=== PATIENT | female | born 1945 | race Caucasian/White ===

== ENCOUNTER 2024-01-19 17:40 | Inpatient (IN) | payer OTHER ==
[2024-01-19] MEDS ORDERED: HALOPERIDOL LACTATE 5 MG/ML ONE (20:55)
[2024-01-19] MEDS: HALOPERIDOL LACTATE 5 MG/ML IM ONE (20:58)
[2024-01-19 21:43] LABS: BASO % 0.5 % (0-2.0); EOS % 0.7 % (0-4.5); HEMATOCRIT 32.5 % (32.4-45.2); HEMOGLOBIN 10.8 GM/dL (10.7-15.3); LYMPH % 13.1 % (8-40); MCH 27.9 pg (25.7-33.7); MCHC 33.2 g/dl (32.0-36.0); MEAN PLT VOLUME 8.4 fl (7.5-11.1); MONO % 5.9 % (3.8-10.2); NEUT % 79.8 % (42.8-82.8); PLATELET COUNT 250 10^3/uL (134-434); RBC 3.87 M/mm3 (3.60-5.2); RDW 14.2 % (11.6-15.6); WHITE BLOOD COUNT 8.9 K/mm3 (4.0-10.0)
[2024-01-19 21:54] LABS: INR 1.03 (0.83-1.09); PROTHROMBIN TIME (PATIENT) 11.8 SEC (9.7-13.0)
[2024-01-19 21:57] LABS: ACTIVATED PTT 27.1 SECONDS (25.2-36.5)
[2024-01-19 22:02] LABS: POTASSIUM 4.9 mmol/L (3.5-5.1)
[2024-01-19 22:03] LABS: CALCIUM 8.6 mg/dL (8.5-10.1)
[2024-01-19 22:04] LABS: BLOOD UREA NITROGEN 31.4 mg/dL (7-18)
[2024-01-19 22:07] LABS: CREATININE 1.3 mg/dL (0.55-1.3)
[2024-01-20] MEDS ORDERED: MELATONIN 5 MG TABLETS PO PRN (05:14)
[2024-01-20] MEDS: LEVOTHYROXINE NA 100 MCG TABLET (FP) PO SCH (06:23)
[2024-01-20 09:23] LABS: BASO % 0.5 % (0-2.0); EOS % 1.4 % (0-4.5); HEMATOCRIT 31.6 % (32.4-45.2); HEMOGLOBIN 10.5 GM/dL (10.7-15.3); LYMPH % 13.3 % (8-40); MCH 27.9 pg (25.7-33.7); MCHC 33.2 g/dl (32.0-36.0); MEAN PLT VOLUME 8.8 fl (7.5-11.1); MONO % 7.4 % (3.8-10.2); NEUT % 77.4 % (42.8-82.8); PLATELET COUNT 228 10^3/uL (134-434); RBC 3.76 M/mm3 (3.60-5.2); RDW 13.6 % (11.6-15.6); WHITE BLOOD COUNT 6.5 K/mm3 (4.0-10.0)
[2024-01-20 09:47] LABS: POTASSIUM 4.5 mmol/L (3.5-5.1)
[2024-01-20 09:51] LABS: CALCIUM 8.7 mg/dL (8.5-10.1)
[2024-01-20 09:55] LABS: CREATININE 0.9 mg/dL (0.55-1.3)
[2024-01-20] MEDS: FERROUS SO4 325 MG TABLET (FP) PO SCH (11:57)
[2024-01-20] MEDS: MULTIVITAMINS (DAILY MVI) TABLET (FP) PO SCH (11:57)
[2024-01-20] MEDS: ASCORBIC ACID 500 MG TABLET (FP) PO SCH (11:58)
[2024-01-20] MEDS: ACETAMINOPHEN 325 MG TABLET (FP) PO PRN (11:58)
[2024-01-20] MEDS: QUEtiapine FUMARATE 25 MG TABLET PO PRN (12:25)
[2024-01-20] MEDS: SENNOSIDES 8.6MG TABLET (FP) PO SCH (21:04)
[2024-01-20] MEDS: DONEPEZIL HCL 5 MG TABLET (FP) PO SCH (21:04)
[2024-01-20] MEDS: MONTELUKAST NA 10 MG TABLET PO SCH (21:04)
[2024-01-20 21:34] LABS: EPI CELLS 16 /uL (0-25.1); HYALINE CASTS 0 /uL (0-3.1); PH,URINE 5.5 (5.0-8.0); URINE APPEARANCE CLEAR; URINE BACTERIA 4860 /uL (0-1359); URINE BILIRUBIN NEGATIVE (NEGATIVE); URINE COLOR YELLOW; URINE GLUCOSE (UA) NEGATIVE (NEGATIVE); URINE KETONE NEGATIVE (NEGATIVE); URINE LEUK ESTERASE TRACE (NEGATIVE); URINE NITRITE POSITIVE (NEGATIVE); URINE PROTEIN NEGATIVE (NEGATIVE); URINE RBC 20 /uL (0-23.9); URINE UROBILINOGEN 0.2 mg/dL (0.2-1.0); URINE WBC 27 /uL (0-25.8)
[2024-01-22] MEDS: QUEtiapine FUMARATE 25 MG TABLET PO SCH (13:04)
[2024-01-23 15:02] VITALS: BMI 20.2
[2024-01-24 02:20] VITALS: RESP 16
[2024-01-24 06:57] VITALS: PULSE 56
[2024-01-24 12:02] VITALS: BP 143/61; TEMP 97.5
== END 2024-01-24 13:06 | DRG 312 ==
LOC: JER 17:40 → JERBED 01-20 01:50 → J4S 01-20 03:32 → OBSVTOIN 01-21 15:41
PROVIDERS: ADMIT Internal Medicine; ATTEND Internal Medicine
DX: R55 Syncope and collapse (principal); F03.911 Unspecified dementia, unspecified severity, with agitation; I10 Essential (primary) hypertension; E03.9 Hypothyroidism, unspecified; I48.91 Unspecified atrial fibrillation; R41.82 Altered mental status, unspecified; Z95.0 Presence of cardiac pacemaker; W18.30XA Fall on same level, unspecified, initial encounter; Y92.098 Other place in other non-institutional residence as the place of occurrence of the external cause
CPT/HCPCS: 36415; 70450-TC; 71045-TC-FY; 72125-TC; 72170-TC-FY; 80048; 81003; 82962; 84443; 84484; 85025; 85610; 85730; 93005; 93010; 93306-TC; 93880-TC; 97116-GP; 97161-GP; 99285-25; G0378